=== PATIENT | female | born 1945 | race Caucasian/White ===

== ENCOUNTER 2022-04-12 09:06 | Emergency (ER) | payer OTHER | END 2022-04-12 12:10 | disposition home or self-care (01) | LOC: FER 09:06 | DX: M25.551 Pain in right hip (principal); E11.9 Type 2 diabetes mellitus without complications; Z88.2 Allergy status to sulfonamides; Z88.1 Allergy status to other antibiotic agents; Z88.6 Allergy status to analgesic agent; Z88.8 Allergy status to other drugs, medicaments and biological substances; W07.XXXA Fall from chair, initial encounter; Y92.009 Unspecified place in unspecified non-institutional (private) residence as the place of occurrence of the external cause | CPT/HCPCS: 72100; 73502 ==